=== PATIENT | female | born 1955 | race Caucasian/White ===

== ENCOUNTER → 2016-05-31 | Outpatient (CLI) | payer OTHER | END | disposition home or self-care (01) | LOC: GMAJ 17:29 | PROVIDERS: ATTEND Family Medicine | DX: Z00.00 Encounter for general adult medical examination without abnormal findings (principal); M79.1 Myalgia ==

== ENCOUNTER → 2016-06-20 | Outpatient (CLI) | payer OTHER, SELFPAY ==
--- NOTE | 2016-06-21 08:23 | MRI ---
EXAM DESCRIPTION: MRI cervical spine CLINICAL HISTORY: Cervical radiculopathy. Right arm numbness and tingling cervical spine pain COMPARISON: None Available. TECHNIQUE: Multi planar, multi sequence MRI evaluation of the cervical spine FINDINGS: C2-3: No canal or foraminal narrowing C3-4: No canal or foraminal narrowing C4-5: Disc desiccation with minimal bulge. No focal disc abnormality, canal or foraminal narrowing C5-6: Moderate loss of disc height with disc osteophyte ridging in the paracentral regions right greater than left. The disc osteophyte ridge on the right in combination with uncovertebral joint hypertrophy leads to moderate foraminal narrowing and probable impingement right C6 nerve. No left foraminal narrowing C6-7: No canal or foraminal narrowing C7-T1: No foraminal narrowing Normal signal in the cervical and visualized thoracic spinal cord. No canal stenosis or cord compression. No abnormality of the visualized posterior fossa contents Normal marrow signal. No paravertebral muscle abnormality No mass or adenopathy in the soft tissues of the neck IMPRESSION: C5-6: Disc osteophyte ridge and contiguous uncovertebral joint hypertrophy leads to moderate foraminal narrowing and probable impingement right C6 nerve Electronically signed by: Abdullahi Rojas MD 06/21/2016 8:23 AM CDT
== END | disposition home or self-care (01) ==
LOC: MRI 11:16
PROVIDERS: ATTEND Family Medicine
DX: M48.02 Spinal stenosis, cervical region (principal)

== ENCOUNTER → 2016-09-23 | Outpatient (CLI) | payer OTHER ==
--- NOTE | 2016-09-26 10:49 | CT ---
EXAM DESCRIPTION: Chest w/Contrast CLINICAL HISTORY: 61 years,Female,Myasthenia gravis without (acute) exacerbation COMPARISON: None TECHNIQUE: Multiple axial helical tomographic images were obtained of the chest with IV contrast, then reconstructed in the sagittal and coronal plane. This exam was performed using radiation doses that are As Low As Reasonably Achievable (ALARA). FINDINGS: Lung heath are clear. Tiny 2 mm nodule in the anterior left upper lobe. No pneumothoraces. Mediastinum demonstrates no adenopathy or masses. Heart size and pulmonary vascularity are unremarkable. Upper abdominal organs included in the exam are unremarkable. Soft tissues and bony elements are unremarkable. IMPRESSION: 2 mm nodule seen in the left upper lobe no follow-up required. Otherwise unremarkable CT of the chest. Electronically signed by: Shankar De Souza MD 09/26/2016 10:48 AM CDT
== END ==
LOC: LAB.O 12:14
PROVIDERS: ATTEND Family Medicine
DX: G70.00 Myasthenia gravis without (acute) exacerbation (principal); M62.81 Muscle weakness (generalized); R91.1 Solitary pulmonary nodule

== ENCOUNTER → 2017-03-02 | Outpatient (CLI) | payer OTHER | END | disposition home or self-care (01) | LOC: MAMMO 16:19 | PROVIDERS: ATTEND Family Medicine | DX: Z12.31 Encounter for screening mammogram for malignant neoplasm of breast (principal) ==

== ENCOUNTER → 2017-05-25 | Outpatient (CLI) | payer OTHER | END | disposition home or self-care (01) | LOC: LAB.O 16:20 | PROVIDERS: ATTEND Psychiatry & Neurology Neurology | DX: M79.1 Myalgia (principal); M25.50 Pain in unspecified joint; Z91.89 Other specified personal risk factors, not elsewhere classified ==

== ENCOUNTER → 2017-08-16 | Outpatient (CLI) | payer OTHER ==
--- NOTE | 2017-08-16 16:33 | MRI ---
EXAM DESCRIPTION: Lumbar Spine w/o Contrast : Magnetic Resonance Imaging. CLINICAL HISTORY: M51.16 COMPARISON: MRI lumbar spine 12/10/2014. TECHNIQUE: Multiplanar, multiple standard sequences, non contrast MRI, lumbar spine. FINDINGS: L5-S1 disc can be visualized on axial T2 image 3. Rudimentary S1-2 disc. L5-S1: Normal signal in the disc with no bulging. Canal and foramina are patent. Partially fused facet joints bilaterally. Bilateral L5 pars interarticularis defects larger on the left. Minimal fluid in the defect. No spondylolisthesis. L4-5: Normal signal in the disc with disc space preserved. Tiny posterior bulge. Mild canal narrowing. Posterior elements unremarkable. No spondylolisthesis. L3-4: Minimal disc desiccation and minimal disc space loss. Tiny posterior bulge. Normal facets with bilateral flavum ligament hypertrophy. Moderate canal narrowing. Bilateral mild foraminal narrowing. L2-3: Normal signal in the disc and disc space preserved. Canal and foramina are patent. Posterior elements unremarkable. L1-2: Normal signal in the disc and disc space preserved. Canal and foramina are patent. Posterior elements unremarkable. T12-L1: Normal signal in the disc and disc space preserved. Canal and foramina are patent. Posterior elements unremarkable. Conus terminates at this level. Inhomogeneous marrow signal. Anatomic curvature of the spine. Well-circumscribed T1 and T2 bright signal anterior T11 vertebral body. Paravertebral soft tissues unremarkable.. Normal marrow signal in the remaining vertebral bodies and the posterior elements. Vertebral bodies are not compressed at any level. IMPRESSION: 1. Rudimentary S1-S2 disc. Bilateral L5-S1 facets appear hypoplastic and may not be functional. Similar appearance on the prior study. 2. Bilateral L5 pars spondylolysis with larger defect on the left. Fluid in the defect. No L5-S1 or L4-5 spondylolisthesis. Left L5 pars defect stable since the prior study 3. L3-4 disc desiccation and tiny posterior bulge. Flavum ligament hypertrophy with moderate canal narrowing. Bilateral mild foraminal narrowing. No canal or foraminal stenosis at any level. This is progressed since the prior study.. Electronically signed by: Nilton Paz MD 08/16/2017 4:32 PM CDT
== END ==
LOC: MRI 13:57
PROVIDERS: ATTEND Orthopaedic Surgery Orthopaedic Surgery of the Spine
DX: M51.16 Intervertebral disc disorders with radiculopathy, lumbar region (principal); M48.061 Spinal stenosis, lumbar region without neurogenic claudication

== ENCOUNTER → 2019-12-13 | Outpatient (CLI) | payer BC, OTHER ==
--- NOTE | 2019-12-14 15:13 | MRI ---
EXAM DESCRIPTION: Knee,Right CLINICAL HISTORY: 64 years Female, PAIN COMPARISON: None. TECHNIQUE: Noncontrast multiplanar multisequence magnetic resonance imaging of the right knee. FINDINGS: Obliquely oriented tear within the posterior horn and body segment junction of the medial meniscus extends to the tibial articular surface. Adjacent/parameniscal cyst measures 1.2 x 0.8 x 0.4 cm. Lateral meniscus exhibits normal thickness and signal intensity. The anterior and posterior cruciate ligaments are intact. Medial collateral and fibular collateral ligaments are intact. Quadriceps and patellar tendons are intact. Medial and lateral patellar retinacular attachment are intact. Grade 2 chondral thinning of the medial patellar facet extending over the apex is present. No subchondral bone marrow edema or cystlike formation. Trochlear groove articular surface is smooth. Tibial tuberosity trochlear groove distance is within normal limits at 1 cm. Medial and lateral compartment articular surfaces are smooth. No knee joint effusion or popliteal cyst formation. IMPRESSION: Flap tear posterior horn body segment junction medial meniscus with 1.2 cm parameniscal cyst. Intact cruciate and collateral ligaments. 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 Electronically signed by: Steve Christianson MD 12/14/2019 3:11 PM CDT
== END ==
LOC: MRI 06:58
PROVIDERS: ATTEND Family Medicine
DX: S83.241A Other tear of medial meniscus, current injury, right knee, initial encounter (principal); M22.2X1 Patellofemoral disorders, right knee